=== PATIENT | female | born 1940 ===

== ENCOUNTER 2019-04-26 07:00 | Inpatient (IN) | payer OTHER ==
[~2019-04-26] VITALS: Ht 152.4 cm; Wt 70.3 kg
[2019-04-26] MEDS ORDERED: LOTREL 10-20 M1 EACH PO (07:27)
[2019-04-26] MEDS ORDERED: BUSPIRONE HCL10 MG PO (07:27)
[2019-04-26] MEDS ORDERED: PROSAC PO (07:28)
[2019-04-26] MEDS ORDERED: ZOCOR PO (07:28)
[2019-04-26] MEDS ORDERED: [UNRECOGNIZED DRUG - OTHER] PO (07:29)
[2019-04-26] MEDS ORDERED: SULINDAC200 MG PO (07:29)
[2019-04-26] MEDS ORDERED: LEVOTHYROXINE25 MCG (09:59)
[2019-04-26] MEDS ORDERED: ASA81 MG (10:00)
[2019-04-26] MEDS ORDERED: FLONASE SENSIM5.9 ML (10:01)
[2019-05-02] MEDS ORDERED: BACLOFEN20 MG PO (08:24)
[2019-05-02] MEDS ORDERED: SIMVASTATIN10 MG PO (08:24)
[2019-05-02] MEDS ORDERED: FLUOXETINE HCL20 MG PO (08:25)
== END 2019-05-04 14:05 | disposition home or self-care (01) | DRG 470 ==
LOC: SURH 05-02 04:25 → O/R 05-02 04:25 → SURH 05-02 07:00
PROVIDERS: ADMIT Orthopaedic Surgery
PROC: 0SRD0JZ Replacement of Left Knee Joint with Synthetic Substitute, Open Approach (ICD-10-PCS; principal; 2019-05-02 11:00)
DX: M17.12 Unilateral primary osteoarthritis, left knee (principal); E78.00 Pure hypercholesterolemia, unspecified; I10 Essential (primary) hypertension; E03.8 Other specified hypothyroidism

== ENCOUNTER 2020-12-09 09:49 | Outpatient (CLI) | payer OTHER ==
[~2020-12-09 09:49] MED LIST: ASA81 MG; BACLOFEN20 MG PO; BUSPIRONE HCL10 MG PO; FLONASE SENSIM5.9 ML; FLUOXETINE HCL20 MG PO; LEVOTHYROXINE25 MCG; LOTREL 10-20 M1 EACH PO; PROSAC PO; SIMVASTATIN10 MG PO; SULINDAC200 MG PO; ZOCOR PO; [UNRECOGNIZED DRUG - OTHER] PO
== END 2020-12-09 10:53 | disposition home or self-care (01) ==
LOC: OFIC 805 09:49
PROVIDERS: ATTEND Otolaryngology Otology & Neurotology
DX: H93.8X1 Other specified disorders of right ear (principal); H90.11 Conductive hearing loss, unilateral, right ear, with unrestricted hearing on the contralateral side; H65.21 Chronic serous otitis media, right ear